=== PATIENT | female | born 1985 | race Caucasian/White ===

== ENCOUNTER 2023-12-13 17:36 | Emergency (ER) | payer BC, SELFPAY ==
[2023-12-13 17:41] VITALS: BP 102/62
--- NOTE | 2023-12-13 18:02 | ED.GENMED ---
History of Present Illness
General
Chief Complaint: Urinary Symptoms
Time Seen by Provider: 12/13/23 18:02
History of Present Illness
History of Present Illness:
HPI: Patient was started on nitrofurantoin by urgent care and [facility] for presumed urinary tract infection. She was told to go to the ER if she had hematuria. She works at [employer] and did her shift and then went to the ER. She was placed
on cefpodoxime. She was told that if her symptoms persist and hematuria recurs then she probably will need IV antibiotics. She came in here for further evaluation and treatment. She has ongoing bilateral CVA pain right greater than left. She has
subjective fevers and chills. She also has a headache. She states she is 'maxed out' on Tylenol. She was also nauseated
EXAM:
GENERAL: Well appearing but in mild distress
HEENT: Moist oral mucosa
CARDIOVASCULAR: No murmurs, normal heart rate, regular rhythm, No chest wall tenderness
PULMONARY: No respiratory distress, breath sounds are clear and equal
ABDOMEN: Soft with no peritoneal signs, no tenderness, minimal right greater than left CVA tenderness
NEUROLOGIC: Excellent strength all extremities, no coordination deficits
PSYCHIATRIC: Appropriate mental status, normal insight and judgement
EXTREMITIES: Nontender, no edema, moves all extremities equally
SKIN: No rash, no lesions
TIME OF INITIAL ENCOUNTER: 6:10 PM
NUMBER AND COMPLEXITY OF PROBLEMS ADDRESSED AT THE ENCOUNTER
� Chronic conditions affecting care: Had bariatric surgery in 2020 at [facility], PCOS, hypothyroidism
� Acute Exacerbation and/or Progression of Chronic Illness: This is an acute problem
� Differential Diagnosis includes: Pyelonephritis, failure of antibiotics, nonspecific back pain, viral syndrome
AMOUNT AND/OR COMPLEXITY OF DATA TO BE REVIEWED AND ANALYZED
� I performed an independent evaluation of and my interpretation is:
EKG:
CT:
X-rays:
Laboratory Studies: White blood cell count is 6.9, hemoglobin 10.3, lactic initially was slightly elevated 2.4, urinalysis shows no blood, trace ketones, trace leukocyte esterase and RBCs and WBCs were both 0-2 per high-power
field.
Other:
� Review of other/old records: I reviewed the records from [facility] with contrast showed no hydronephrosis, there was no report of inflammatory changes around the kidney, cystitis of the bladder was suggested. White count was
normal at [facility] but urinalysis did show signs of UTI. I did review the urine culture which showed 10-40,000 CFU of lactobacillus. Chest x-ray was unremarkable at [facility].
� Clinical information was obtained by an independent historian: None needed
� Prescriptions/Medications Considered but not given: Considered IV antibiotics initially however there is no clear sign for UTI/pyelonephritis currently
� Further testing considered but not performed: Considered imaging however the patient recently had CT that I reviewed at [facility] the other day.
RISK OF COMPLICATIONS AND/OR MORBIDITY OR MORTALITY OF PATIENT MANAGEMENT
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
� Discussion with other providers:
� Escalation of care including admission/observation vs risk of discharge considered: Based on urine culture at [facility] no clear evidence for UTI. She remains in pain but states that she backed herself out on Tylenol. Although it
is listed she has an NSAID allergy, she had taken ibuprofen and tolerated well. Will give a one-time dose but avoid any NSAID orally as she does have a history of gastric bypass. Based on urinalysis, no clear sign of ongoing urinary tract
infection. Blood pressure has been borderline, I did repeat a manual blood pressure personally and it was 104/68.
Past History
Past History
ED Past Medical History: Hypothyroidism and Psychiatric (Takes Adderall daily, clonidine and hydroxyzine at bedtime)
ED Past Surgical History: None
Social History
Tobacco: Non-smoker
Alcohol: Occasional
Personal: Single
Living: with roommate
Employment: Employed
Family History
Family History: Other (Noncontributory)
Phy Exam
Physical Exam
Physical Exam:
See HPI
Course
Orders/Labs/Results
Orders:
Orders
12/13/23 18:13
0.9% Sodium Chloride 1000 ml [Nss] 1,000 ml IV BOLUS
Ketorolac [Toradol] 15 mg IV NOW STA
12/13/23 18:25
Basic Metabolic Panel Urgent
Complete Blood Count/With Diff Urgent
Lactic Acid Q4H
Comment: CANCEL 2nd LACTIC ACID IF 1st LACTIC ACID IS LESS THAN 2
Urinalysis Reflex To Culture Urgent
Date Specimen was Collected: 12/13/23
Time Specimen was Collected: 18:17
Urine Microscopic Reflex Cult Urgent
Blood Culture Q30M
RADHA Source: Blood/Venous
Specimen Description:
12/13/23 18:30
Ondansetron Injectable [Zofran] 4 mg IV NOW STA
12/13/23 18:31
Blood Culture Q30M
RADHA Source: Blood/Venous
Specimen Description:
Ondansetron Injectable [Zofran] 4 mg .ROUTE .STK-MED ONE
12/13/23 19:05
0.9% Sodium Chloride 1000 ml [Nss] 1,000 ml IV BOLUS
12/13/23 19:35
Ketorolac [Toradol] 15 mg .ROUTE .STK-MED ONE
12/13/23 19:36
Ketorolac [Toradol] 15 mg IV NOW STA
12/13/23 21:02
Lactic Acid Q4H
Comment: CANCEL 2nd LACTIC ACID IF 1st LACTIC ACID IS LESS THAN 2
Abnormal Lab Results
12/13/23
18:25
RBC 3.75 L 10^6/uL
(4.20-5.40)
Hgb 10.3 L g/dL
(12.0-16.0)
Hct 32.9 L %
(37.0-47.0)
MCHC 31.3 L g/dL
(33.0-37.0)
Lymphocytes % 19.1 L %
(20.5-51.1)
Lactic Acid 2.4 H mmol/L
(0.7-2.0)
Urine Ketones Trace A
(Negative)
Leukocyte Esterase Rfl Trace A
(Negative)
Urine Bacteria (Reflex) Few A
(Negative)
12/13/23 18:25
12/13/23 18:25
Vital Signs
Blood pressure: 104/68
Initial and Last Documented VS:
Initial Vital Signs
Temp Pulse Resp BP Pulse Ox
98.0 F 92 18 102/62 99
12/13/23 17:41 12/13/23 17:41 12/13/23 17:41 12/13/23 17:41 12/13/23 17:41
Last Documented Vital Signs
Temp Pulse Resp BP Pulse Ox
98.0 F 59 18 104/68 100
12/13/23 17:41 12/13/23 20:49 12/13/23 20:49 12/13/23 21:23 12/13/23 20:49
*Critical Care Note
Total Time (30-74mins, 75-104mins- exclusive of procedures): Not Applicable
ED Attending Note
-
Portions of this chart may have been created with voice recognition software.� Occasional wrong word or��sound alike� substitutions may have occurred due to the inherent limitations of voice recognition software.
Discharge Plan
Departure
Prescriptions:
No Action
pantoprazole [Protonix] 20 MG tablet,delayed release (DR/EC)
20 mg PO DAILY
[id number] K [Bariatric Multivitamins] 1 EACH capsule
1 ea PO DAILY
Disulfiram
1 tab PO DAILY
Patient Comments:
unsure of mg
Referrals:
Altaf Beltran DC [Family Provider] -
Interventions
Interventions:
*Risk Screen - Suicide Last Done: 12/13/23 18:14
*General Assessment Last Done: 12/13/23 18:14
*Neglect/Abuse Screening Last Done: 12/13/23 18:14
ED- Fall Risk Assessment Last Done: 12/13/23 18:14
ED-Female Genitourinary Assessment Last Done: 12/13/23 18:14
Discharge Date and Time
Print Language: YAKUT
[2023-12-13] MEDS: TORADOL 15 MG IV ×2 (18:26→19:37)
[2023-12-13] MEDS: NSS 1000 IV ×2 (18:27→19:31)
[2023-12-13] MEDS: ZOFRAN 4 MG IV (18:31)
[2023-12-13 18:34] VITALS: BMI 22.9
[2023-12-13 18:40] LABS: % Basophils 0.4 % (0-2); % Eosinophils 1.2 % (0-6); % Immature Granulocytes 0.4 % (0-0.5); % Lymphocytes 19.1 % (20.5-51.1); % Monocytes 5.5 % (1.7-9.3); % Neutrophils 73.4 % (42.2-75.2); Absolute Eosinophils 0.1 10^3/uL (0-0.7); Absolute Lymphocytes 1.3 10^3/uL (1.2-3.4); Absolute Monocytes 0.4 10^3/uL (0.1-0.6); Absolute Neutrophils 5.1 10^3/uL (1.4-6.5); Hematocrit 32.9 % (37.0-47.0); Hemoglobin 10.3 g/dL (12.0-16.0); Mean Corp Hgb Conc. 31.3 g/dL (33.0-37.0); Mean Corpuscular Hgb 27.5 pg (27.0-31.0); Mean Corpuscular Volume 87.7 fL (81.0-99.0); Mean Platelet Volume 9.2 fL (7.4-10.4); Nucleated Red Blood Cells % 0 %; Platelet Count 277 10^3/uL (130-400); Red Blood Cell Count 3.75 10^6/uL (4.20-5.40); Red Cell Dist. Width 13.2 % (11.5-14.5); White Blood Cell Count 6.9 10^3/uL (4.8-10.8)
[2023-12-13 18:41] LABS: Urine Albumin Negative (Neg - Trace); Urine Bilirubin Negative (Negative); Urine Character Clear (Clear); Urine Color Yellow; Urine Glucose Negative (Negative); Urine Ketone Trace (Negative); Urine Leukocyte Trace (Negative); Urine Nitrite Negative (Negative); Urine Occult Blood Negative (Negative); Urine Urobilinogen Negative (Neg - 1+)
[2023-12-13 18:50] LABS: Urine Squamous Cell >30 /LPF (Few)
[2023-12-13 18:51] LABS: Urine Bacteria Few (Negative); Urine Red Blood Cell 0-2 /HPF (0-2); Urine White Cell 0-2 /HPF (0-5)
[2023-12-13 19:01] LABS: Blood Urea Nitrogen 14 mg/dl (7-17); Carbon Dioxide 22 mmol/L (22-30); Chloride 107 mmol/L (98-107); Estimated Creatinine Clearance > 125 ml/min; Glucose 99 mg/dl (70-99); Lactic Acid 2.4 mmol/L (0.7-2.0); Potassium 3.8 mmol/L (3.5-5.1); Sodium 138 mmol/L (135-145); eGFR > 60.00
[2023-12-13 20:49] VITALS: BP 97/54
[2023-12-13 21:25] LABS: Lactic Acid 0.7 mmol/L (0.7-2.0)
== END 2023-12-13 22:01 | disposition home or self-care (01) ==
LOC: EMR 17:36
PROVIDERS: EMERGENCY PHYSICIAN Emergency Medicine; FAMILY PHYSICIAN Chiropractor
DX: M54.9 Dorsalgia, unspecified (principal)
CPT/HCPCS: 99284; 96374; 96375; 96376; 80048; 81003; 81015; 83605; 85025; 87040

== ENCOUNTER 2025-03-14 14:28 | Emergency (ER) | payer BC, SELFPAY ==
[2025-03-14 14:28] VITALS: BP 122/82; BMI 22.8
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
[2025-03-14] MEDS: NSS 1000 IV (14:47)
[2025-03-14 14:53] LABS: Hematocrit 39.7 % (37.0-47.0); Hemoglobin 13.7 g/dL (12.0-16.0); Mean Corp Hgb Conc. 34.5 g/dL (33.0-37.0); Mean Corpuscular Volume 91.5 fL (81.0-99.0); Nucleated Red Blood Cells % 0 %; Platelet Count 287 10^3/uL (130-400); Red Cell Dist. Width 12.4 % (11.5-14.5)
[2025-03-14 15:00] VITALS: BP 110/62
[2025-03-14 15:25] LABS: Blood Urea Nitrogen 9 mg/dl (7-17); Calcium 8.6 mg/dl (8.4-10.2); Carbon Dioxide 25 mmol/L (22-30); Chloride 101 mmol/L (98-107); Estimated Creatinine Clearance > 125 ml/min; Glucose 104 mg/dl (70-99); Sodium 138 mmol/L (135-145); eGFR > 60.00
[2025-03-14] MEDS: TYLENOL 1000 MG PO (15:54)
[2025-03-14 16:26] LABS: HCG, Serum Qualitative Screen Negative
--- NOTE | 2025-03-14 16:29 | EDRN ---
crisis was at the pts bedside speaking with the pt, [facility]ARES is now at the pts bedside speaking with the pt, this RN entered the pts room and found the pts monitor off and IV out, catheter in tact, the pt does not want a pressure dressing on the right
hand, Dr. Easley notified
[2025-03-14 16:32] LABS: ALT (SGPT) 18 U/L (0-35); AST (SGOT) 39 U/L (14-36); Albumin 4.4 g/dl (3.5-5.0); Alkaline Phosphatase 54 U/L (38-126); Blood Urea Nitrogen 8 mg/dl (7-17); Calcium 8.4 mg/dl (8.4-10.2); Carbon Dioxide 23 mmol/L (22-30); Chloride 105 mmol/L (98-107); Estimated Creatinine Clearance > 125 ml/min; Glucose 90 mg/dl (70-99); Potassium 4.3 mmol/L (3.5-5.1); Sodium 140 mmol/L (135-145); Total Protein 6.8 g/dl (6.3-8.2); eGFR > 60.00
--- NOTE | 2025-03-14 16:34 | EDRN ---
the pt walked out of ED room #11 and started to walk towards the ED exit, this RN and Dr. Easley caught up to the pt and asked the pt where she was going and the pt stated, 'I am going home my is going to pick me up', this RN asked
the pt if her was here and the pt stated that he was not, this RN and Dr. Soriano asked the pt if she would be okay with waiting in ED bed #11 until her arrived to pick her up due to her alcohol level and the pt agreed and
walked back into ED bed #11, Nikki from crisis currently at the pts bedside again
== END 2025-03-14 17:03 | disposition home or self-care (01) ==
LOC: EMR 14:28
PROVIDERS: EMERGENCY PHYSICIAN Emergency Medicine
DX: F10.129 Alcohol abuse with intoxication, unspecified (principal); Y90.9 Presence of alcohol in blood, level not specified; F32.9 Major depressive disorder, single episode, unspecified; E03.9 Hypothyroidism, unspecified; F43.10 Post-traumatic stress disorder, unspecified; Z98.84 Bariatric surgery status; Z62.810 Personal history of physical and sexual abuse in childhood
CPT/HCPCS: 96360; 99284; 80048; 80053; 80306; 82077; 84443; 84703; 85025